=== PATIENT | male | born 1940 | race Caucasian/White ===

== ENCOUNTER 2016-04-10 11:28 | Emergency (ER) | payer MEDICARE, OTHER ==
[~2016-04-10] VITALS: Ht 177.8 cm; Wt 86.2 kg
--- OUTSIDE RECORDS SUMMARY | 2016-04-10 11:34 | XMS REPORT | Continuity of Care Document ---
Author Author [facility] Organization [facility] Address Unknown Phone Unavailable Care Team Providers Care Dry Cell Assembly Machine Tender Name Role Phone Crow, D PCP [phone] Source Comments Some departments are not documenting in the electronic medical record. If you do not see the information that you expected, contact Release of Information in the Health Information Management department at [phone] for further assistance in locating additional records.[facility] Active Allergies and Adverse Reactions No Known Allergies Current Medications Prescription Sig. Disp. Refills Start End Date Status Date ATORVASTATIN CALCIUM Take 20 mg by mouth Active (LIPITOR PO) Daily. METFORMIN HCL (METFORMIN Take 850 mg by mouth Active PO) Twice Daily. omeprazole DR,+, Take 20 mg by mouth Active (PRILOSEC) 20 mg capsule Daily. aspirin EC 81 mg tablet Take 1 Tab by mouth 0 0 02/28/20 Active Daily. Avoid taking until 09 murcia catheter comes out. oxycodone/acetaminophen Take 1-2 Tabs by mouth 40 0 02/28/20 Active (PERCOCET) 5/325 mg Every 4 Hours as needed 09 tablet for Pain. Avoid driving while taking this pain medication. hyoscyamine (LEVSIN/SL) 1 Tab Every 4 Hours as 40 1 02/28/20 Active 0.125 mg tablet needed. 09 senna/docusate Take 2 Tabs by mouth 30 0 02/28/20 Active (SENOKOT-S) 8.6/50 mg Daily. 09 tablet fish oil /omega-3 fatty Take 1 Cap by mouth Twice 0 0 02/28/20 Active acids (SEA-OMEGA) Daily With Meals. Resume 09 340/1000 mg Cap after murcia catheter comes out. levofloxacin (LEVAQUIN) Take 1 Tab by mouth 15 0 02/28/20 Active 250 mg tablet Daily. 09 polymyxin/bacitracin/jeanne/ Apply to affected area 1 tube 0 02/28/20 Active HC (CORTISPORIN) 1 % Three Times Daily. 09 topical ointment oxybutynin XL (DITROPAN Take 1 Tab by mouth 15 0 02/28/20 Active XL) 10 mg tablet Daily. 09 acetaminophen SR,+, Take 1 Tab by mouth As 0 0 02/28/20 Active (TYLENOL ARTHRITIS) 650 Needed for Pain. Do not 09 mg tablet take in addition to percocet because percocet has tylenol in it Active Problems Problem Noted Date Prostate cancer (HCC) 02/26/2009 Social History Tobacco Use Types Packs/Day Years Used Date Never Assessed Smokeless Tobacco: Chew Current User Comments: occasional chew Alcohol Use Drinks/Week oz/Week Comments Yes 7 Glasses of 35.0 1 - 6oz glass of wine in the evenings wine Last Filed Vital Signs Vital Sign Reading Time Taken Blood Pressure 126/77 02/27/2009 7:00 AM DIRECTOR FRANCHISE SALES Pulse 62 02/27/2009 7:00 AM DIRECTOR [employer] Temperature 37 C (98.6 F) 02/27/2009 7:00 AM DIRECTOR FRANCHISE [employer]ES Respiratory Rate - - Height 1.803 m (5' 11") 02/21/2009 9:00 AM DIRECTOR FR[employer]CHISE [employer]ES Weight 96 kg (211 lb 10.3 oz) 02/21/2009 9:00 AM DIRECTOR FRANCHISE [employer]ES Body Mass Index 29.53 02/21/2009 9:00 AM DIRECTOR FRANCHISE SALES Oxygen Saturation 96% 02/26/2009 9:08 PM DIRECTOR FRANCHISE SALES Plan of Care Health Maintenance Due Date Last Done Comments Physical (Comprehensive) 1947 Exam Pertussis Vaccine 1952 Tetanus Vaccine 1958 Colorectal Cancer 07/02/1991 Screening Shingles Vaccine 2001 Prevnar/Pneumovax (#1) 2006 Influenza Vaccine 12/04/2015 Results from Last 3 Months Not on file
[2016-04-10] MEDS ORDERED: CANA100T (11:50)
[2016-04-10] MEDS ORDERED: BENZ200C51 (11:50)
[2016-04-10] MEDS ORDERED: METF1000 (11:50)
[2016-04-10] MEDS ORDERED: ATOR40TA70 (11:50)
[2016-04-10] MEDS ORDERED: CEFD300C3 (11:50)
[2016-04-10] MEDS ORDERED: RT-ALBUTEROL/IPRATROPIUM 3 ML (DUONEB) VIAL INH ONE (12:00)
--- NOTE | 2016-04-10 12:03 | ED Cough/URI ---
General Chief Complaint: Cough/Cold/Flu Symptoms Stated Complaint: COUGH/FEVER Nursing Triage Note: COUGH CONGESTION FOR 2 WEEKS Source: patient, family Exam Limitations: no limitations History of Present Illness Time seen by provider: 11:59 Initial Comments This 75-year-old white male presents with a two-week history of persistent cough. Patient has tried a course of azithromycin and currently is on cephalosporins without improvement. The patient has had associated fever and chills. He denies severe shortness of breath, palpitations or syncope, significant productive cough, or previous history of COPD. Allergies and Home Medications Allergies Coded Allergies: No Known Drug Allergies (Verified Allergy, Unknown, 07/10/08) Home Medications Atorvastatin Calcium 40 Mg Tablet #90 (Reported) Benzonatate 200 Mg Capsule #30 (Reported) Canagliflozin 100 Mg Tablet #90 (Reported) Cefdinir 300 Mg Capsule #14 (Reported) Metformin HCl 1,000 Mg Tablet #180 (Reported) Constitutional: chills fever EENTM: No ear pain, No throat pain Respiratory: coughNo hemoptysis, No short of breath Cardiovascular: No chest pain Gastrointestinal: No abdominal pain, No diarrhea, No vomiting Genitourinary: No dysuria, No frequency Musculoskeletal: No back pain Skin: No rash Psychiatric/Neurological: No Symptoms Reported Hematologic/Lymphatic: No Symptoms Reported Immunological/Allergic: no symptoms reported Past Oswwetc-Mwkipb-Oqmbut Hx Patient Social History Alcohol Use: Denies Use Recreational Drug Use: No Smoking Status: Never a Smoker Recent Foreign Travel: No Contact w/Someone Who Travel: No Recent Infectious Disease Expo: No Recent Hopitalizations: No Physical Abuse Screen: No Sexual Abuse: No Immunizations Up To Date Date of Influenza Vaccine: Jan 05, 2016 Surgeries HX Surgeries: Yes Surgeries: Prostatectomy Respiratory Hx Respiratory Disorders: No Cardiovascular Hx Cardiac Disorders: Yes Cardiac Disorders: High Cholesterol Neurological Hx Neurological Disorders: No Reproductive System Hx Reproductive Disorders: No Sexually Transmitted Disease: No Genitourinary Hx Genitourinary Disorders: Yes (STONE) Gastrointestinal Hx Gastrointestinal Disorders: No Musculoskeletal Hx Musculoskeletal Disorders: No Endocrine Hx Endocrine Disorders: Yes Endocrine Disorders: Diabetes, Non-Insulin dep HEENT HX ENT Disorders: No Blood Transfusions Hx Blood Disorders: No Reviewed Nursing Assessment Reviewed/Agree w Nursing PMH: Yes Physical Exam Vital Signs Vital Sign - Last 12Hours 04/10/16 04/10/16 11:39 12:22 Temp 98.0 Pulse 79 Resp 18 B/P 122/83 Pulse Ox 95 O2 Delivery Room Air O2 Flow Rate 88.00 Capillary Refill : Less Than 3 Seconds General Appearance: WD/WN Eyes: Bilateral Eye Normal Inspection HEENT: normal ENT inspection Neck: normal inspection Respiratory: lungs clear normal breath sounds no respiratory distress Cardiovascular: regular rate, rhythm Gastrointestinal: normal bowel sounds non tenderNo guarding Extremities: normal range of motion non-tender normal inspection Neurologic/Psychiatric: no motor/sensory deficits alert normal mood/affect Skin: normal color warm/dry Progress/Results/Core Measures Results/Orders Lab Results Laboratory Tests Test 04/10/16 12:05 Range/Units Band Neutrophils 4 % Basophils # (Auto) 0.0 0.0-0.1 10^3/uL Basophils % (Manual) 0 % Basophils (%) (Auto) 0 0-10 % Blood Morphology Comment NORMAL Eosinophils # (Auto) 0.0 0.0-0.3 10^3/uL Eosinophils % (Manual) 0 % Eosinophils (%) (Auto) 0 0-10 % Hematocrit 44 40-54 % Hemoglobin 15.1 13.3-17.7 G/DL Lactic Acid Level 2.3 *H 0.5-2.0 MMOL/L Lymphocytes # (Auto) 1.0 1.0-4.0 X 10^3 Lymphocytes % (Manual) 8 % Lymphocytes (%) (Auto) 17 12-44 % Mean Corpuscular Hemoglobin 32 25-34 PG Mean Corpuscular Hemoglobin Concent 35 32-36 G/DL Mean Corpuscular Volume 94 80-99 FL Mean Platelet Volume 9.7 7.4-10.4 FL Monocytes # (Auto) 0.7 0.0-1.0 X 10^3 Monocytes % (Manual) 9 % Monocytes (%) (Auto) 12 0-12 % Neutrophils # (Auto) 4.0 1.8-7.8 X 10^3 Neutrophils % (Manual) 76 % Neutrophils (%) (Auto) 71 42-75 % Platelet Count 236 130-400 10^3/uL Reactive Lymphocytes 3 % Red Blood Count 4.67 4.35-5.85 10^6/uL Red Cell Distribution Width 12.6 10.0-14.5 % White Blood Count 5.7 4.3-11.0 10^3/uL My Orders Orders-NIK CALDERON MD Cbc And Manual Diff (04/10/16 11:55) Chest Pa/Lat (2 View) (04/10/16 11:55) Albuterol/Ipra Inhalation Soln (Duoneb I (04/10/16 12:00) Svn Sm Volume Nebulizer Rt-Rfs (04/10/16 11:56) Blood Culture (04/10/16 11:56) Lactic Acid Analyzer (04/10/16 11:56) Saline Lock/Iv-Start (04/10/16 12:16) Medications Given in ED Current Medications Medications Dose Ordered Sig/Ciro Route Start Time Stop Time Status Last Admin Dose Admin Albuterol/ Ipratropium 3 ml ONCE ONCE INH 04/10/16 12:00 04/10/16 12:01 DC 04/10/16 12:21 3 ML Vital Signs/I&O Vital Sign - Last 12Hours 04/10/16 04/10/16 11:39 12:22 Temp 98.0 Pulse 79 Resp 18 B/P 122/83 Pulse Ox 95 O2 Delivery Room Air Room Air O2 Flow Rate 88.00 Blood Pressure Mean: 96 Progress Note : Time: 12:56 Progress Note The patient's chest x-ray demonstrated no evidence of an infiltrate. Patient's CBC demonstrated a normal white count. The patient did have a mildly elevated lactic acid. 2 blood cultures are been done. I consult with Dr. Hough on this patient and we both believe that in isolation and a mildly elevated lactic acid is not indicative of sepsis. Furthermore we agreed to treatment course of Tussionex and prednisone. The patient will continue with hus cephalosporin orally. I asked that he follow up closely with Dr. Lyons on Tuesday. I asked him to return to the emergency department he have any acute problems over the weekend. Departure Impression Impression: Primary Impression: Bronchitis Disposition: 01 HOME, SELF-CARE Condition: Improved Departure-Patient Inst. Decision time for Depature: 13:09 Referrals: NIK LYONS MD (PCP/Family) Primary Care Physician Patient Instructions: Acute Bronchitis, Adult (DC) Add. Discharge Instructions: Continue with your cephalosporin antibiotic. Add Tussionex and prednisone as prescribed. Close follow-up with Dr. Lyons. Albuterol treatments at home. Return if any problems. All discharge instructions reviewed with patient and/ or family. Voiced understanding. NIK CALDERON MD Apr 10, 2016 12:02
[2016-04-10 12:22] LABS: BASOPHILS % (AUTO) 0 % (0-10); EOSINOPHILS % (AUTO) 0 % (0-10); LYMPHOCYTES % (AUTO) 17 % (12-44); MEAN CORPUSCULAR HEMOGLOBIN 32 PG (25-34); MEAN CORPUSCULAR HGB CONC 35 G/DL (32-36); MEAN CORPUSCULAR VOLUME 94 FL (80-99); MEAN PLATELET VOLUME 9.7 FL (7.4-10.4); MONOCYTES # (AUTO) 0.7 X 10^3 (0.0-1.0); MONOCYTES % (AUTO) 12 % (0-12); NEUTROPHILS % (AUTO) 71 % (42-75); PLATELET COUNT 236 10^3/uL (130-400); RED BLOOD COUNT 4.67 10^6/uL (4.35-5.85); RED CELL DISTRIBUTION WIDTH 12.6 % (10.0-14.5); WHITE BLOOD COUNT 5.7 10^3/uL (4.3-11.0)
[2016-04-10 12:51] LABS: BAND NEUTROPHILS 4 %; BASOPHILS % (MANUAL) 0 %; EOSINOPHILS % (MANUAL) 0 %; LYMPHOCYTES % (MANUAL) 8 %; NEUTROPHILS % (MANUAL) 76 %
[2016-04-10 12:52] LABS: REACTIVE LYMPHOCYTES 3 %
--- NOTE | 2016-04-10 12:57 | Diagnostic Imaging Report ---
INDICATION: Cough with fever. FINDINGS: There is no infiltrate, failure, effusion or pneumothorax. No free air beneath the diaphragms. IMPRESSION: No acute-appearing abnormality Dictated by: Dictated on workstation # [id number]
[2016-04-10 13:17] VITALS: BP 126/65
== END 2016-04-10 13:17 | disposition home or self-care (01) ==
LOC: EDUNIT# 11:28 → ER 11:30
DX: J40 Bronchitis, not specified as acute or chronic (principal); E11.9 Type 2 diabetes mellitus without complications; Z79.84 Long term (current) use of oral hypoglycemic drugs; Z79.899 Other long term (current) drug therapy
CPT/HCPCS: 36415; 71020; 83605; 85007; 85027; 87040; 94640

== ENCOUNTER → 2016-04-13 | Outpatient (CLI) | payer MEDICARE, OTHER ==
[~2016-04-13] MED LIST: ATOR40TA70; BENZ200C51; CANA100T; CEFD300C3; METF1000
--- OUTSIDE RECORDS SUMMARY | 2016-04-13 15:13 | XMS REPORT | Continuity of Care Document ---
Author Author [facility] Organization [facility] Address Unknown Phone Unavailable Care Team Providers Care Belt Sander Name Role Phone Crow, D PCP [phone] Source Comments Some departments are not documenting in the electronic medical record. If you do not see the information that you expected, contact Release of Information in the Health Information Management department at [phone] for further assistance in locating additional records.[facility] Active Allergies and Adverse Reactions No Known [...] Meals. Resume 09 340/1000 mg Cap after murica catheter comes out. levofloxacin (LEVAQUIN) Take 1 [...] Taken Blood Pressure 126/77 02/27/2009 7:00 AM INVENTORY COORDINATOR Pulse 62 02/27/2009 7:00 AM INVENTORY COORDINATOR Temperature 37 C (98.6 F) 02/27/2009 7:00 AM INVENTORY COORDINATOR Respiratory Rate - - Height 1.803 m (5' 11") 02/21/2009 9:00 AM INVENTORY COORDINATOR Weight 96 kg (211 lb 10.3 oz) 02/21/2009 9:00 AM INVENTORY COORDINATOR Body Mass Index 29.53 02/21/2009 9:00 AM INVENTORY COORDINATOR Oxygen Saturation 96% 02/26/2009 9:08 PM INVENTORY COORDINATOR Plan of Care Health Maintenance Due Date Last Done Comments Physical (Comprehensive) 1947 Exam Pertussis Vaccine 1952 Tetanus Vaccine 1958 Colorectal Cancer 07/02/1991 Screening Shingles Vaccine 2001 Prevnar/Pneumovax (#1) 2006 Influenza Vaccine 12/04/2015 Results from Last 3 Months Not on file
== END ==
LOC: LAB 15:10
PROVIDERS: ATTEND Internal Medicine
DX: J06.9 Acute upper respiratory infection, unspecified (principal)
CPT/HCPCS: 87070; 87205

== ENCOUNTER 2020-12-21 09:34 | Emergency (ER) | payer MEDICARE, OTHER ==
[~2020-12-21] VITALS: Ht 177.8 cm; Wt 84.0 kg
[~2020-12-21 09:34] MED LIST changes: +METF-399; -METF1000
--- NOTE | 2020-12-21 10:28 | ED Integumentary General ---
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 BY ACCIDENT. AVULSION OF PAD OF BOTH FINGERS. CONCERN THEY HE MAY NEEDS A ANTIBIOTIC Source: patient, family Exam Limitations: no limitations History of Present Illness Date Seen by Provider: Dec 21, 2020 Time Seen by Provider: 10:26 Initial Comments Patient is a 80-year-old male who presents to the emergency department today with a chief complaint of discomfort, mild swelling and redness to the index and middle finger of his right hand. Patient states that last Tuesday, 5 days ago he accidentally stuck his hand into a "planer" and shaved off the volar R pad of his index finger and basically abraded the pad of his middle finger. Patient states that he washed it and wrapped it up and kept it wrapped for 5 days. Took the dressings off last night and noted that the skin around the injured soft tissue was very white and seem to be draining. He states he cleaned it up again and when he woke up this morning it appeared to be a little bit better although he does have some redness to the dorsum of the right index finger. No fevers or chills. Denies bony injury. Last tetanus was greater than 10 years ago. No allergies to medications. All other review of systems reviewed and negative except as stated. Timing/Duration: week (5 days ago) Severity: mild Location: hands (right hand 2nd/3rd finger) Allergies and Home Medications Allergies Coded Allergies: No Known Drug Allergies (Verified Allergy, Unknown, 07/10/08) Patient Home Medication List Home Medication List Reviewed: Yes Atorvastatin Calcium (Atorvastatin Calcium) 40 Mg Tablet, (Reported) Entered as Reported by: MARGARITA ELAINE on 04/10/16 115 Benzonatate (Benzonatate) 200 Mg Capsule, (Reported) Entered as Reported by: MARGARITA ELAINE on 04/10/16 115 Canagliflozin (Invokana) 100 Mg Tablet, (Reported) Entered as Reported by: MARGARITA ELAINE on 04/10/16 115 Cefdinir (Cefdinir) 300 Mg Capsule, (Reported) Entered as Reported by: MARGARITA ELAINE on 04/10/16 115 Metformin HCl (Metformin HCl) 1,000 Mg Tablet, (Reported) Entered as Reported by: MARGARITA ELAINE on 04/10/16 1150 Review of Systems Review of Systems Constitutional: see HPI Respiratory: no symptoms reported Cardiovascular: no symptoms reported Musculoskeletal: other (slight discomfort right index finger; open wound) Skin: other (wound pad of right index finger) All Other Systems Reviewed Negative Unless Noted: Yes Past Niacrfo-Uxjndr-Wvdvrh Hx Patient Social History Tobacco Use?: No Substance use?: No Pt feels they are or have been: No Immunizations Up To Date First/Initial COVID19 Vaccinat: APR Second COVID19 Vaccination Chetan: JUNE COVID19 Vaccine Curb Builder: RODRIGUEZ Past Medical History Prostatectomy High Cholesterol Reproductive Disorders: No Sexually Transmitted Disease: No Diabetes, Non-Insulin dep Physical Exam Vital Signs Vital Signs - First Documented 12/21/20 09:48 Pulse 66 Resp 18 B/P (MAP) 136/77 (96) Pulse Ox 98 O2 Delivery Room Air Capillary Refill : Less Than 3 Seconds General Appearance: WD/WN, no apparent distress HEENT: PERRL/EOMI Cardiovascular: regular rate, rhythm Respiratory: lungs clear, normal breath sounds, no respiratory distress, no accessory muscle use Extremities: normal range of motion, non-tender, normal capillary refill Neurologic/Psychiatric: alert, normal mood/affect, oriented x 3 Skin: other (Fairly extensive avulsion injury to the volar aspect of the distal right index finger. Wound extends through the skin and soft tissues down to deep subcutaneous tissues. No muscle belly is observed. No active bleeding. Wound is starting to "scab". Mildly tender to palpation. He does have a little very mild surrounding erythema that extends over the dorsum of the finger. Mild swelling is noted. No proximal lymphangitic streaking. He does not have tenderness along the volar sheath. He does not have a "sausage digit". He does not have pain with passive extension. I am not concerned for any tenosynovitis at this time. In addition he has a mild abrasion with scant amount of loss of tissue to the volar aspect of the tip of the middle finger. Very mildly tender to palpation, no secondary signs of infection.) Progress/Results/Core Measures Results/Orders Vital Signs/I&O 12/21/20 09:48 Pulse 66 Resp 18 B/P (MAP) 136/77 (96) Pulse Ox 98 O2 Delivery Room Air Blood Pressure Mean: 96 Departure Impression Primary Impression: Avulsion of soft tissue Additional Impression: Abrasion of right middle finger Qualified Codes: S60.412A - Abrasion of right middle finger, initial encounter Disposition: 01 HOME, SELF-CARE Condition: Stable Departure-Patient Inst. Decision time for Depature: 10:46 Referrals: NIK LYONS MD (PCP/Family) Primary Care Physician Patient Instructions: Wound Care Add. Discharge Instructions: Continue to keep the injured areas clean and dry. Wash with soap and water. There is no need at this point to put further antibiotic ointment over the injury. Start Keflex, 500 mg 3 times a day for the next week. This will help with what appears to be a mild infection of the soft tissues of your right pointer finger. Please come back to the emergency room if you have any increased swelling of the finger especially swelling and pain that extends down the whole finger; also if you have increasing redness, streaking up the hand or drainage. Follow-up with your primary care provider, Dr. Lyons as needed. A little Tylenol as needed for discomfort. All discharge instructions reviewed with patient and/or family. Voiced understanding. Scripts Cephalexin (Cephalexin) 500 Mg Tablet 500 MG PO TID for 7 Days, #21 TAB Prov: ANALISA ELLIS MD 12/21/20 ANALISA ELLIS MD Dec 21, 2020 10:28
[2020-12-21] MEDS ORDERED: TETANUS,DIPTH,PERTUSS P/F (BOOSTRIX) 0.5 ML VIAL IM ONE (10:45)
[2020-12-21] MEDS ORDERED: CEPH500T PO (10:48)
[2020-12-21 10:58] VITALS: BP 136/77
== END 2020-12-21 10:56 | disposition home or self-care (01) ==
LOC: EDUNIT# 09:34 → ER 09:36
DX: S61.200A Unspecified open wound of right index finger without damage to nail, initial encounter (principal); S60.412A Abrasion of right middle finger, initial encounter; E11.9 Type 2 diabetes mellitus without complications; E78.00 Pure hypercholesterolemia, unspecified; Z79.84 Long term (current) use of oral hypoglycemic drugs; Z79.899 Other long term (current) drug therapy; W31.2XXA Contact with powered woodworking and forming machines, initial encounter
CPT/HCPCS: 90715; 99284